=== PATIENT | male | born 1965 | race Caucasian/White ===

== ENCOUNTER 2024-03-19 09:14 | Emergency (ER) | payer OTHER, SELFPAY ==
[2024-03-19 09:18] VITALS: BP 163/90
[2024-03-19 10:01] VITALS: BMI 29.2
--- NOTE | 2024-03-19 11:25 | ED.MUSCINJ ---
HPI-Injury
General
Chief Complaint: Musculo-Skeletal Complaint
Source: patient
Exam Limitations: none
Time Seen by Provider: 03/19/24 10:37
History of Present Illness-Injury
Initial Injury comments:
58-year-old male presents complaining of lower back pain that radiates down the right hip through the lateral aspect of the right thigh into the the anterior aspect of the right [place]omon. He denies any bowel or bladder dysfunction. No associated
fever. No rash. He saw a chiropractor as well as pain management in the past 2 weeks. Pain management prescribed a steroid taper and gabapentin. He is on 300 mg of gabapentin daily. He states the pain is getting worse. He is due for an MRI
April 21. No other complaints at this time
Past History
Past History
ED Past Medical History: Other (Low back pain)
Social History
Tobacco: Non-smoker
Alcohol: None
Drug: None
Phy Exam
Physical Exam
Physical Exam:
General: Uncomfortable appearing male no acute respiratory distress
Musculoskeletal exam: Patient good range of motion to lower extremities. He is nontender about the leg. He is ambulatory
Neurologic: Good sensation and strength to the lower extremities bilaterally. Bilateral patellar's 2+. Negative straight leg raise.
Vascular: 2+ dorsalis pedis pulse to bilateral feet
Neurologic: Good sensation light touch all aspects of the right leg
MDM/Problems Addressed
Differential Diagnosis Includes:
Low back pain that radiates down the right leg. Suspect radiculopathy. No fever to infectious source. No red flag signs to be concerned about cauda equina or epidural abscess. Patient is ambulatory. He is in touch with pain management. He is
due for an MRI. I explained the patient that there is no emergent need for an MRI here to the ER. He understood this. Will represcribe steroid have him increase his gabapentin intake and add a muscle relaxer to his regimen. Return precautions
were given
*Critical Care Note
Total Time (30-74mins, 75-104mins- exclusive of procedures): Not Applicable
ED Attending Note
-
Portions of this chart may have been created with voice recognition software.� Occasional wrong word or��sound alike� substitutions may have occurred due to the inherent limitations of voice recognition software.
Discharge Plan
Departure
Patient Disposition: Home (Routine Discharge)
Date of Disposition: 03/19/24
Time of Disposition: 11:33
Patient with high blood pressure during this ER visit?: No
Discharge Problem:
Acute lumbar radiculopathy
Instructions: Radiculopathy (DC)
Prescriptions:
New
prednisone 10 mg Tablet
See Rx Instructions .ROUTE .COMPLEX Qty: 45 0RF
Rx Instructions:
Take By Mouth:
50 mg daily x3 days, 40 mg daily x3 days,
30 mg daily x3 days, 20 mg daily x3 days,
10 mg daily x3 days
cyclobenzaprine 10 mg tablet
10 mg PO TID PRN (Reason: spasm) Qty: 10 0RF
No Action
cyclobenzaprine 10 MG tablet
10 mg PO TIDPRN PRN (Reason: pain ) Qty: 12 0RF
cyclobenzaprine 10 MG tablet
10 mg PO TIDPRN PRN (Reason: back pain) Qty: 13 0RF
Referrals:
UNKNOWN - PT DOES,NOT KNOW [Family Provider] -
Activity Restrictions/Additional Instructions:
Increase gabapentin to 300 mg twice a day. Use muscle relaxer as needed. Restart prednisone taper as prescribed. Continue to follow-up with your pain management doctor. Return here for worsening symptoms otherwise
Interventions
Interventions:
*Risk Screen - Suicide Last Done: 03/19/24 09:18
*General Assessment Last Done: 03/19/24 10:02
*Neglect/Abuse Screening Last Done: 03/19/24 09:18
ED- Fall Risk Assessment Last Done: 03/19/24 10:02
*ED COVID-19 Vaccine History Last Done: 03/19/24 10:02
ED-Musculoskeletal Assessment Last Done: 03/19/24 10:03
Discharge Date and Time
Print Language: MARTINIQUAIS
[2024-03-19 11:59] VITALS: BP 154/69
== END 2024-03-19 12:00 | disposition home or self-care (01) ==
LOC: EMR 09:14
PROVIDERS: EMERGENCY PHYSICIAN Emergency Medicine
DX: M54.16 Radiculopathy, lumbar region (principal)
CPT/HCPCS: 99283

== ENCOUNTER 2024-03-29 06:20 | Day surgery (SDC) | payer OTHER, SELFPAY | END 2024-03-29 15:00 | disposition home or self-care (01) | LOC: GI 06:20 | PROVIDERS: ATTENDING PHYSICIAN Internal Medicine Gastroenterology | DX: R13.14 Dysphagia, pharyngoesophageal phase (principal); R12 Heartburn; K22.89 Other specified disease of esophagus; K22.2 Esophageal obstruction; K44.9 Diaphragmatic hernia without obstruction or gangrene | CPT/HCPCS: 43249; 43239; 88305 ==